=== PATIENT | male | born 1955 | race Caucasian/White ===

== ENCOUNTER 2016-09-20 18:15 | Inpatient (IN) | payer OTHER ==
[~2016-09-20] VITALS: Ht 185.4 cm; Wt 66.0 kg
[~2016-09-20 18:15] MED LIST: ADVIL,NUPRIN,M200 MG PO; ALEVE220 MG PO; ALLEGRA-D 241 TABLET PO; ALLEGRA30 MG PO; AMBIEN10 MG PO; Bactrim,Septra DS 80 PO; CALCIPOTRIENE60 G1 TP; CICLOPIROX30 GM TP; CLOBETASOL PROP60 G1 TP; COLACE100 MG PO; COMPAZINE10 MG PO; Claritin-D 24 Hour PO; DAYQUIL PO; DICLOFENAC SOD100 MG PO; DICLOFENAC SODI50 MG PO; Feosol PO; HYCET 7.5 MG-3473 ML PO; HYDROCODON-ACE1 EAC7 PO; LORTAB 10 MG-3473 ML PO; LORTAB 5-325 M1 EACH PO; METHOTREXATE2.5 MG PO; MIRALAX17 GM PO; MUCINEX600 MG PO; MUCUS RELIEF600 MG PO; Motrin PO; NAPROXEN500 MG PO; NEURONTIN300 MG PO; NORCO 5/3251 TABLET PO; PERCOCET 5/31 TABLET PO; PREDNISONE20 MG PO; Percocet 5/325,Endoc PO; Plaquenil PO; SODIUM CHLORIDE45 ML BOTH NARES; SYNTHROID50 MCG PO; TRAMADOL HCL50 MG PO; ULTRAM50 MG PO; VOLTAREN-XR100 MG PO; VOLTAREN50 MG PO; Vitamin D PO; Voltaren PO
[2016-09-20 19:15] LABS: HEMATOCRIT 36.6 % (38.0-50.0); MCHC 32.2 G/DL (30.0-36.0); MCV 80.6 FL (86-99); MEAN PLAT.VOLUME 9.5 uM^3 (9.0-12.4); PLATELET COUNT 437 K/uL (156-360); RBC DIS.WIDTH-CV 23.5 % (11.8-14.6); RED BLOOD COUNT 4.54 M/uL (4.00-5.50)
[2016-09-20 19:23] LABS: CHLORIDE 105 mEq/L (99-109); POTASSIUM 4.7 mEq/L (3.7-5.4); SODIUM 138 mEq/L (136-147)
[2016-09-20 19:25] LABS: GLUCOSE 96 mg/dL (70-99)
[2016-09-20 19:26] LABS: ANION GAP 14 MEQ/L (2-14)
[2016-09-20 19:27] LABS: TOTAL BILIRUBIN 1.3 mg/dL (0.0-1.0)
[2016-09-20 19:29] LABS: ALKALINE PHOSPHATASE 217 IU/L (3-129); GFR ESTIMATE (CALCULATED) > 59 mL/min/
[2016-09-20 19:30] LABS: UREA NITROGEN (BUN) 31 mg/dL (9-23)
[2016-09-20 19:32] LABS: LIPASE 4 U/L (1.0-51.0)
[2016-09-20] MEDS ORDERED: VOLTAREN-XR100 MG PO (22:12)
[2016-09-20] MEDS ORDERED: SYNTHROID100 MCG PO (22:13)
[2016-09-20 22:41] LABS: ADD MIUA? YES; BILIRUBIN NEGATIVE; BLOOD LARGE; COLOR YELLOW ((YELLOW)); GLUCOSE (STRIP) NEGATIVE; KETONES 5; LEUKOCYTES SMALL; NITRITE NEGATIVE; PROTEIN (STRIP) 30; SPECIFIC GRAVITY 1.013 (1.000-1.030); UROBILINOGEN 0.2 MG/DL (0.2-1.0)
[2016-09-20 23:24] LABS: BACTERIA 2+ /HPF; CASTS PRESENT /LPF; EPITHELIAL CELLS 2+ /HPF; HYALINE CASTS 0-5 /LPF; MUCUS 2+ /LPF; RED BLOOD CELLS 20-30 /HPF (0-5); UCUL ADDED? NO; WHITE BLOOD CELLS 0-5 /HPF (0-5)
[2016-09-21 02:00] VITALS: BP 115/60
[2016-09-21 02:00] LABS: PREALBUMIN 3.7 mg/dL (10-40)
[2016-09-21 07:08] VITALS: BP 107/55
[2016-09-21 07:19] LABS: ANION GAP 11 MEQ/L (2-14); CHLORIDE 110 MEQ/L (99-109); GFR ESTIMATE (CALCULATED) > 59 mL/min/; GLUCOSE 88 mg/dL (70-99); MAGNESIUM 1.8 mg/dl (1.3-2.7); POTASSIUM 4.5 MEQ/L (3.7-5.4); SAMPLE HEMOLYSIS CHECK 0; SAMPLE ICTERIC CHECK 0; SAMPLE LIPEMIA CHECK 0; SODIUM 142 MEQ/L (136-147); UREA NITROGEN (BUN) 27 mg/dL (9-23)
[2016-09-21 10:15] VITALS: BP 136/64
[2016-09-21 16:00] VITALS: BP 107/64
[2016-09-21 20:00] VITALS: BP 126/69
[2016-09-22 04:00] VITALS: BP 110/58
[2016-09-22 06:14] LABS: MCH 26.8 PG (29.0-34.0); MCHC 31.8 G/DL (30.0-36.0); MCV 84.2 FL (86-99); MEAN PLAT.VOLUME 9.7 uM^3 (9.0-12.4); PLATELET COUNT 333 K/uL (156-360); RBC DIS.WIDTH-CV 24.4 % (11.8-14.6); RBC DIS.WIDTH-SD 72.5 % (39-53); RED BLOOD COUNT 3.92 M/uL (4.00-5.50); WHITE BLOOD COUNT 20.9 K/uL (4.1-10.2)
[2016-09-22 06:24] LABS: BASOPHIL COUNT 0.2 K/uL (0-0.1); EOSINOPHIL (%) 0.3 % (0-5); EOSINOPHIL COUNT 0.1 K/uL (0-0.3); IMMATURE GRANULOCYTE (%) 0.7 % (0.0-0.7); IMMATURE GRANULOCYTE COUNT 0.2 K/uL; INSTRUMENT ABS NEUTROPHIL CT 18.6 K/uL; LYMPHOCYTE COUNT 0.6 K/uL (1.0-2.8); MONOCYTE (%) 6.5 % (3-12); MONOCYTE COUNT 1.4 K/uL (0-0.8); NEUTROPHIL (%) 88.8 % (45-76); NEUTROPHIL COUNT 18.6 K/uL (1.8-6.4)
[2016-09-22 06:50] LABS: ANION GAP 11 MEQ/L (2-14); CHLORIDE 107 MEQ/L (99-109); GFR ESTIMATE (CALCULATED) > 59 mL/min/; GLUCOSE 80 mg/dL (70-99); POTASSIUM 4.2 MEQ/L (3.7-5.4); SAMPLE HEMOLYSIS CHECK 0; SAMPLE ICTERIC CHECK 0; SAMPLE LIPEMIA CHECK 0; SODIUM 142 MEQ/L (136-147); UREA NITROGEN (BUN) 27 mg/dL (9-23)
[2016-09-22 07:56] VITALS: BP 104/56
[2016-09-22 09:38] LABS: METH RESISTANT S AUREUS PCR NEGATIVE (NEGATIVE)
[2016-09-22 09:44] LABS: PROBE CHECK PASS; SPECIMEN PROCESSING CONTROL PASS
[2016-09-22 12:04] VITALS: BP 105/55
[2016-09-22 16:17] VITALS: BP 110/63
[2016-09-23 07:00] VITALS: BP 109/58
[2016-09-23 08:00] VITALS: BP 109/58
[2016-09-23 17:31] VITALS: BP 100/55
[2016-09-23 23:05] VITALS: BP 98/58
[2016-09-24 10:24] VITALS: BP 11/55
[2016-09-24] MEDS ORDERED: BENTYL20 MG PO (15:04)
[2016-09-24] MEDS ORDERED: TRAMADOL HCL50 MG PO (15:10)
[2016-09-24] MEDS ORDERED: ATIVAN INTE2 MG/1 ML PO (15:10)
[2016-09-24] MEDS ORDERED: ZOLPIDEM TARTRAT5 MG PO (15:10)
[2016-09-24] MEDS ORDERED: MORPHINE CON20 MG/M1 PO (15:10)
== END 2016-09-24 16:45 | disposition home health service (06) | DRG 146 ==
LOC: EME 18:15 → 5EAST 09-21 00:44 → EDOF 09-21 00:44 → 5EAST 09-21 00:44
PROVIDERS: Hospitalist; Physician Assistant
DX: C09.9 Malignant neoplasm of tonsil, unspecified (principal); E43 Unspecified severe protein-calorie malnutrition; N17.9 Acute kidney failure, unspecified; C78.00 Secondary malignant neoplasm of unspecified lung; C77.1 Secondary and unspecified malignant neoplasm of intrathoracic lymph nodes; K22.2 Esophageal obstruction; R62.7 Adult failure to thrive; R13.19 Other dysphagia; C78.7 Secondary malignant neoplasm of liver and intrahepatic bile duct; C79.31 Secondary malignant neoplasm of brain; E86.0 Dehydration; G89.29 Other chronic pain; M54.9 Dorsalgia, unspecified; N39.0 Urinary tract infection, site not specified; Z51.5 Encounter for palliative care; Z66 Do not resuscitate; Z68.1 Body mass index [BMI] 19.9 or less, adult; Z80.1 Family history of malignant neoplasm of trachea, bronchus and lung; Z85.46 Personal history of malignant neoplasm of prostate; Z87.442 Personal history of urinary calculi; Z87.891 Personal history of nicotine dependence; Z92.3 Personal history of irradiation; L40.50 Arthropathic psoriasis, unspecified; M79.89 Other specified soft tissue disorders; R05 Cough; R11.2 Nausea with vomiting, unspecified; R60.0 Localized edema; J38.01 Paralysis of vocal cords and larynx, unilateral
CPT/HCPCS: 70490; 71250; 74022; 76937; 80048; 80053; 81003; 83605; 83690; 83735; 84100; 84134; 85025; 85027; 87040; 87641; 93970; 96360; 99281; 99285; C1894; J0696; J1644; J2270; J2405; J3411; J3475; J7030; J7050

== ENCOUNTER 2016-10-03 05:35 | Inpatient (IN) | payer OTHER ==
[~2016-10-03] VITALS: Ht 190.5 cm; Wt 61.4 kg
[~2016-10-03 05:35] MED LIST changes: +ATIVAN INTE2 MG/1 ML PO; +BENTYL20 MG PO; +MORPHINE CON20 MG/M1 PO; +SYNTHROID100 MCG PO; +ZOLPIDEM TARTRAT5 MG PO
[2016-10-03] MEDS ORDERED: ZOLPIDEM TARTRA10 MG PO (07:08)
[2016-10-05 04:17] VITALS: BP 0/0
== END 2016-10-05 23:48 | DRG 375 ==
LOC: EME → EDBD 05:35 → EME 05:35 → EDOF 14:37 → 5EAST 14:37
DX: C78.89 Secondary malignant neoplasm of other digestive organs (principal); Z85.819 Personal history of malignant neoplasm of unspecified site of lip, oral cavity, and pharynx; Z51.5 Encounter for palliative care; Z66 Do not resuscitate; E86.0 Dehydration; R13.10 Dysphagia, unspecified; R64 Cachexia; L40.50 Arthropathic psoriasis, unspecified; F32.9 Major depressive disorder, single episode, unspecified; G43.909 Migraine, unspecified, not intractable, without status migrainosus; R55 Syncope and collapse; Z85.46 Personal history of malignant neoplasm of prostate; Z92.21 Personal history of antineoplastic chemotherapy; Z68.1 Body mass index [BMI] 19.9 or less, adult
CPT/HCPCS: 99281; 99283; J2060; J2270